=== PATIENT | male | born 1965 | race Caucasian/White ===

== ENCOUNTER 2016-08-14 08:54 | Emergency (ER) | payer MEDICARE, OTHER ==
[~2016-08-14] VITALS: Ht 182.9 cm; Wt 85.0 kg
[~2016-08-14 08:54] MED LIST: IBUP-238 PO; PRED20 PO; Z.0.NO CURRENT MEDS
[2016-08-14 08:57] VITALS: BP 162/85; PULSE 90; RESP 20; TEMP 98.1; O2SAT 99
[2016-08-14] MEDS ORDERED: AUGM875T PO (09:19)
[2016-08-14] MEDS ORDERED: GUAISYP7 PO (09:19)
--- NOTE | 2016-08-14 09:20 | PD ---
HPI Chief Complaint: Abdominal Pain Time Seen by Provider: 09:16 Travel History International Travel<30 days: No Contact w/Intl Traveler<30days: No Traveled to known affect area: No History of Present Illness HPI 42-year-old man, presents emergency Department with 10 days of cough cold sinus congestion as well as diarrhea low side abdominal cramping. History of chronic neck and back pain. No medical problems. Some chills but no definite fever. Otherwise looks well. History Past Medical History Narrative Medical Chronic neck and back pain, history of neck and back fractures and surgery Social History Alcohol Use: Yes (OCC) Tobacco Use: Yes (3-4 CIG PER DAY) Allergies-Medications (Allergen,Severity, Reaction): Coded Allergies: No Known Allergies (Verified , 08/14/16) Reported Meds & Prescriptions Reported Meds & Active Scripts Active No Active Prescriptions or Reported Medications Review of Systems Except as stated in HPI: all other systems reviewed are Neg Physical Exam Narrative GENERAL: An 42 year-old woman, frequent cough. SKIN: Warm and dry. HEAD: Atraumatic. Normocephalic. EYES: Pupils equal and round. No scleral icterus. No injection or drainage. ENT: No nasal bleeding or discharge. Mucous membranes pink and moist. NECK: Trachea midline. No JVD. CARDIOVASCULAR: Regular rate and rhythm. No murmur appreciated. RESPIRATORY: Frequent cough. Lungs are clear. No adventitious lung sounds or wheezing. GASTROINTESTINAL: Abdomen is flat and soft. Mild left-sided tenderness to palpation. No rebound or guarding. : Some left abdominal tenderness but no masses or evidence of recurrent hernia. MUSCULOSKELETAL: No obvious deformities. No clubbing. No cyanosis. No edema. NEUROLOGICAL: Awake and alert. No obvious cranial nerve deficits. Motor grossly within normal limits. Normal speech. PSYCHIATRIC: Appropriate mood and affect; insight and judgment normal. Data Data Last Documented VS Vital Signs Date Time Temp Pulse Resp B/P Pulse Ox O2 Delivery O2 Flow Rate FiO2 08/14/16 08:57 98.1 90 20 162/85 99 MDM Medical Decision Making Medical Screen Exam Complete: Yes Emergency Medical Condition: Yes Differential Diagnosis URI, bronchitis, diverticulitis, pancreatitis, pneumonia, other Narrative Course Medical decision making 42-year-old man, cough cold symptoms of sinus congestion, also some left-sided abdominal diarrhea. Possible viral symptoms ongoing for about 10 days or so. May have a small amount of diverticulitis. Cramping is worse after eating. He looks overall very well. He's had a left sided hernia repair before he has some scarring it's exacerbated by frequent cough. No evidence of obstruction. I don't think he needs labs or imaging at this time. We'll give him a course of Augmentin, cough medicine, and outpatient follow-up. Diagnosis Primary Impression: Bronchitis Additional Impression: Abdominal pain Qualified Code: R10.12 - Left upper quadrant pain Additional Instructions: Take medications as prescribed. Up with her primary doctor in the next 2-4 days. Return to the emergency department for any new or worsening symptoms. Scripts Guaifenesin-Dextromethorphan Liq (Guaifenesin DM Liq)10-100 Mg/5 Ml Liq10 Ml PO Q4H PRN (COUGH) #1 BOTTLE Prov:Tomas Pinedo MD 08/14/16 Amoxicillin-Clavulanate (Augmentin)875-125 mg Oyk599 Mg PO BID 7 Days not for use in CrCl <30 ml/min. Prov:Tomas Pinedo MD 08/14/16 Disposition: 01 DISCHARGE HOME Condition: Stable Tomas Pinedo MD Aug 14, 2016 09:20
== END 2016-08-14 10:00 | disposition home or self-care (01) ==
LOC: NETRI 08:54
DX: J40 Bronchitis, not specified as acute or chronic (principal); R10.9 Unspecified abdominal pain; R19.7 Diarrhea, unspecified; F17.210 Nicotine dependence, cigarettes, uncomplicated
CPT/HCPCS: 99283